=== PATIENT | female | born 1970 | race Two or more races ===

== ENCOUNTER → 2020-03-23 | Outpatient (CLI) | payer MEDICAID ==
[~2020-03-23] MED LIST: LIDOCAINE 1% MDV 20ML VIAL As Ordered ONE; SODIUM BICARBONATE 8.4% INJ 50MEQ 50 ML VIAL As Ordered ONE
[2020-03-23 13:05] VITALS: BP 110/62
--- NOTE | 2020-03-23 19:19 | REP ---
INDICATION: NEOPLASM OF PAROTID SALIVARY GLAND-RIGHT. COMPARISON: None. TECHNIQUE: The procedure was performed by Racquel Guevara [facility], under the direct supervision of Dr. Peck. The risks and benefits of the procedure were explained to the patient and an informed consent was obtained both verbally and written. Directly prior to the start of the procedure a formal time-out was completed in the procedure room. FINDINGS: Using ultrasound guidance the right parotid mass was localized. The skin was prepped and draped in a sterile fashion. Six mL of buffered lidocaine was used as a local anesthetic. Using ultrasound guidance 8 fine needle aspirations were obtained using 25 gauge needles. Four specimens were sent to our lab here, and remaining 4 were sent out in RPMI solution, for further testing The patient tolerated the procedure well and there were no immediate complications. After the appropriate amount of monitored convalescence the patient was discharged from the department. IMPRESSION: 1. Ultrasound-guided right parotid mass biopsy. <Electronically signed by Racquel Guevraa > 03/23/20 1708 <Electronically signed by Hank Peck > 03/23/20 [id number]
== END ==
LOC: M IRPRO 11:37
PROVIDERS: ATTEND Otolaryngology
DX: D11.0 Benign neoplasm of parotid gland (principal)

== ENCOUNTER → 2020-04-20 | Outpatient (CLI) | payer MEDICAID ==
[~2020-04-20] MED LIST changes: +ISOVUE-370 76% 100ML VIAL As Ordered ONE; -LIDOCAINE 1% MDV 20ML VIAL As Ordered ONE; -SODIUM BICARBONATE 8.4% INJ 50MEQ 50 ML VIAL As Ordered ONE
--- NOTE | 2020-04-23 07:58 | REP ---
INDICATION: NEOPLASM IN NECK. Repeat dictation. Preliminary report is provided at the time of the exam by nieves MA. COMPARISON: Comparison CT study is been retrieved from [facility] dated February 28, 2020.. TECHNIQUE: Helical scanning is acquired following the intravenous injection of 75 mL of intravenous Isovue 370. 3 mm axial images re-formatted. Coronal and sagittal MPR images are included. FINDINGS: The previous CT study showed a oval shaped enhancing nodule along the posterior aspect and the inferior aspect of the superficial lobe of the right parotid gland. This measured 12 x 16 x 12 mm. On today's exam, this lymph node is normal in size, 0.5 cm in greatest diameter. No intraparotid lesion is visible today. Parotid glands are symmetric. There are scattered anterior cervical lymph nodes. The largest on the left measures 11 mm and the largest node on the right measures 6 mm in short axis dimension. No vascular abnormality is seen. Thyroid and submandibular glands are normal and symmetric. No soft tissue mass is seen. No abnormal fluid collection is seen. The lung apices are clear. No bony destructive lesion is seen. The patient is edentulous. Visualized paranasal sinuses are clear. No intraorbital abnormality is seen. IMPRESSION: No significant abnormality. The enhancing nodule along the posteroinferior aspect of the right parotid lobe on the [facility] study from February 28, 2020 has regressed consistent with a hypertrophied lymph node period now normal in size. <Electronically signed by Hank Peck > 04/23/20 0754
== END ==
LOC: M RAD 14:46
PROVIDERS: ATTEND Otolaryngology
DX: D37.030 Neoplasm of uncertain behavior of the parotid salivary glands (principal)
CPT/HCPCS: 70491; Q9967

== ENCOUNTER 2020-05-19 11:12 | Emergency (ER) | payer MEDICAID ==
[~2020-05-19] VITALS: Ht 152.4 cm; Wt 109.1 kg
[2020-05-19] MEDS ORDERED: CITA20TA6 (11:24)
[2020-05-19] MEDS ORDERED: VENTAER INH (11:24)
[2020-05-19 12:02] LABS: BASO # 0.1 10^3/uL (0.0-0.2); BASO % 0.5 % (0.0-1.0); EOS # 0.3 10^3/uL (0.0-0.5); EOS % 2.4 % (0.0-3.0); HEMATOCRIT 40.5 % (36.0-47.0); HEMOGLOBIN 13.2 g/dl (12.0-15.5); LYMPH # 2.7 10^3/uL (1.5-5.0); LYMPH % 25.4 % (24.0-44.0); MEAN CORPUSCULAR HEMOGLOBIN 29.1 pg (27.0-33.0); MEAN CORPUSCULAR HGB CONC 32.6 g/dl (32.0-36.5); MEAN CORPUSCULAR VOLUME 89.4 fl (80.0-96.0); MONO # 0.5 10^3/uL (0.0-0.8); MONO % 4.4 % (0.0-5.0); NEUTROPHILS # 7.2 10^3/uL (1.5-8.5); NEUTROPHILS % 66.7 % (36.0-66.0); PLATELET COUNT, AUTOMATED 381 10^3/uL (150-450); RED BLOOD COUNT 4.53 10^6/uL (4.00-5.40); WHITE BLOOD COUNT 10.8 10^3/uL (4.0-10.0)
[2020-05-19 12:30] LABS: BLOOD UREA NITROGEN 13 MG/DL (7-18); CALCIUM LEVEL 8.7 MG/DL (8.5-10.1); CARBON DIOXIDE LEVEL 28 MEQ/L (21-32); CHLORIDE LEVEL 105 MEQ/L (98-107); CREATININE FOR GFR 0.55 MG/DL (0.55-1.30); GLOMERULAR FILTRATION RATE > 60.0 (>58); GLUCOSE, FASTING 111 MG/DL (70-100); POTASSIUM SERUM 4.2 MEQ/L (3.5-5.1); SODIUM LEVEL 138 MEQ/L (136-145)
[2020-05-19] MEDS ORDERED: MECLIZINE 25 MG TABLET PO ONE (12:30)
[2020-05-19 13:00] LABS: CK-MB VALUE MASS < 1.0 NG/ML (<3.6); CPK CREATINE PHOSPHOKINASE 52 U/L (26-192); ETHYL ALCOHOL (ETHANOL) < 0.003 % (0.000-0.010); FREE T4 0.82 NG/DL (0.76-1.46); MAGNESIUM LEVEL 2.3 MG/DL (1.8-2.4); MB/CK RELATIVE INDEX 1.92 (< OR =4); THYROID STIMULATING HORMONE 0.851 uIU/ML (0.358-3.740); TROPONIN I < 0.02 NG/ML (< 0.10)
[2020-05-19 13:02] LABS: INR 0.92; PROTHROMBIN TIME 12.5 SECONDS (12.5-14.3)
[2020-05-19 13:34] LABS: RSV AMPLIFICATION NEGATIVE (NEGATIVE)
--- NOTE | 2020-05-19 13:51 | REP ---
INDICATION: Syncope/near-syncope. COMPARISON: No comparison study. TECHNIQUE: Portable upright AP chest radiograph. FINDINGS: The lungs are well inflated and free of infiltrate. Pleural angles are sharp. Heart size is normal. Pulmonary vasculature is not increased. Monitoring electrodes are visible. IMPRESSION: No active disease. <Electronically signed by Hank Peck > 05/19/20 [id number]
--- NOTE | 2020-05-19 14:20 | REP ---
INDICATION: Syncope COMPARISON: None. TECHNIQUE: Axial noncontrast images from the skull base to the vertex with coronal reformations. This CT examination was performed using the following dose reduction techniques: Automated exposure control, adjustment of mA and/or kv according to the patient's size, and use of iterative reconstruction technique. FINDINGS: The ventricles, sulci, and cisterns are normal in position and appearance. [place]-white differentiation is maintained. No acute intracranial hemorrhage, mass/mass effect, pathology or trauma/injury. No evidence for acute infarction. No extra-axial fluid collection. Calvarium is intact. Paranasal sinuses and mastoid air cells are clear. IMPRESSION: Normal noncontrast head CT. No evidence for acute intracranial pathology or trauma/injury. <Electronically signed by Erik Burton > 05/19/20 [id number]
[2020-05-19] MEDS ORDERED: MECL1TAB31 PO (14:40)
[2020-05-19 15:28] VITALS: BP 129/76
--- NOTE | 2020-05-20 05:22 | ECGEPIP ---
[facility] - ED Test Date: 2020-05-19 Pat Name: ZENY JASSO Department: Room: - Gender: Female Manager Statistical Programming: LR : 1970 Requested By: Brannon Owen Order Number: [id number] Reading MD: Ascencion Bowman Measurements Intervals [place] Rate: 62 P: 47 FL: 182 QRS: -1 QRSD: 83 T: 31 QT: 415 QTc: 424 Interpretive Statements SINUS RHYTHM LOW QRS VOLTAGE IN PRECORDIAL LEADS Comparison tracing not on file Electronically Signed on 05-20-2020 5:22:21 EST by Ascencion Bowman
== END 2020-05-19 15:38 | disposition home or self-care (01) ==
LOC: M ED 11:12
DX: H83.09 Labyrinthitis, unspecified ear (principal); J45.909 Unspecified asthma, uncomplicated; I11.9 Hypertensive heart disease without heart failure; E11.9 Type 2 diabetes mellitus without complications; F17.200 Nicotine dependence, unspecified, uncomplicated; Z91.013 Allergy to seafood
CPT/HCPCS: 36415; 70450; 71045; 80048; 82550; 82553; 83735; 84439; 84443; 85025; 85610; 87631; 93005; 94760; 99284; G0480

== ENCOUNTER → 2020-11-10 | Outpatient (REF) ==
[~2020-11-10] MED LIST changes: +CITA20TA6; -ISOVUE-370 76% 100ML VIAL As Ordered ONE; +MECL1TAB31 PO; +VENTAER INH
== END ==
LOC: M LAB 14:34
PROVIDERS: ATTEND Nurse Practitioner Adult Health
DX: Z00.00 Encounter for general adult medical examination without abnormal findings (principal)